=== PATIENT | female | born 1960 | race Caucasian/White ===

== ENCOUNTER → 2023-09-27 | Day surgery (SDC) | payer BC, OTHER ==
[~2023-09-27] VITALS: Ht 154.9 cm; Wt 55.2 kg
[~2023-09-27] MED LIST: AZEL1SPR3; CIPRODEX OTIC SUSP 7.5ML As Ordered ONE; ESCI5SOL3 PO; HYDR12.55 PO; HYDROMORPHONE HCL 0.5 MG/ 0.5 ML SYRINGE IV PRN; LEVO50TA5 PO; LIDOCAINE 1% SDV 5ML VIAL SC PRN; LIDOCAINE 2% 100MG/5ML SDV (FOR ANES.) As Ordered ONE; LR 1,000 ML IV SCH; METOCLOPRAMIDE INJ 10MG/2ML VIAL IV PRN; MIDAZOLAM INJ 2MG/2ML VIAL As Ordered ONE; MONT10TA97 PO; NYST-38 PO; OMEP40CA5 PO; ONDANSETRON 4MG 2ML VIAL As Ordered ONE; ONDANSETRON 4MG 2ML VIAL IV PRN; PRAV20TA2 PO; ePHEDrine SULFATE 25 MG/5 ML(5MG/ML) SYRINGE As Ordered ONE; fentaNYL 100 MCG/2 ML INJECTION As Ordered ONE; fentaNYL 100 MCG/2 ML INJECTION IV PRN; oxyCODONE 5MG TAB PO PRN; propofoL 200 MG/20 ML VIAL As Ordered ONE
[2023-09-27 12:56] VITALS: BP 130/84; TEMP 97.1; O2SAT 96
== END | disposition home or self-care (01) ==
LOC: M SDC 08:39
PROVIDERS: ATTEND Otolaryngology
DX: H69.93 Unspecified Eustachian tube disorder, bilateral (principal); I10 Essential (primary) hypertension; E78.00 Pure hypercholesterolemia, unspecified; E03.8 Other specified hypothyroidism; Z88.0 Allergy status to penicillin; Z79.899 Other long term (current) drug therapy; Z79.890 Hormone replacement therapy
CPT/HCPCS: 69436; J1100; J2250; J2405; J3010

== ENCOUNTER → 2023-11-02 | Outpatient (REF) | payer BC, OTHER ==
[~2023-11-02] MED LIST changes: -CIPRODEX OTIC SUSP 7.5ML As Ordered ONE; -HYDROMORPHONE HCL 0.5 MG/ 0.5 ML SYRINGE IV PRN; -LIDOCAINE 1% SDV 5ML VIAL SC PRN; -LIDOCAINE 2% 100MG/5ML SDV (FOR ANES.) As Ordered ONE; -LR 1,000 ML IV SCH; -METOCLOPRAMIDE INJ 10MG/2ML VIAL IV PRN; -MIDAZOLAM INJ 2MG/2ML VIAL As Ordered ONE; -ONDANSETRON 4MG 2ML VIAL As Ordered ONE; -ONDANSETRON 4MG 2ML VIAL IV PRN; -ePHEDrine SULFATE 25 MG/5 ML(5MG/ML) SYRINGE As Ordered ONE; -fentaNYL 100 MCG/2 ML INJECTION As Ordered ONE; -fentaNYL 100 MCG/2 ML INJECTION IV PRN; -oxyCODONE 5MG TAB PO PRN; -propofoL 200 MG/20 ML VIAL As Ordered ONE
== END ==
LOC: M SFHCWOUN 12:28
PROVIDERS: ATTEND Physician Assistant
DX: M27.2 Inflammatory conditions of jaws (principal)

== ENCOUNTER → 2024-11-19 | Outpatient (CLI) | payer MEDICARE, BC ==
[~2024-11-19] MED LIST changes: +ISOVUE-370 76% 100ML VIAL ONE
== END ==
LOC: M PLAIMG 07:29
PROVIDERS: ATTEND Otolaryngology
DX: Z85.818 Personal history of malignant neoplasm of other sites of lip, oral cavity, and pharynx (principal)
CPT/HCPCS: 70491; Q9967

== ENCOUNTER → 2025-01-30 | Day surgery (SDC) | payer MEDICARE, BC ==
[~2025-01-30] VITALS: Ht 154.9 cm; Wt 49.9 kg
[~2025-01-30] MED LIST changes: +BISO5TAB14 PO; -ISOVUE-370 76% 100ML VIAL ONE; +LIDOCAINE 2% 100MG/5ML SDV (FOR ANES.) As Ordered ONE; +fentaNYL 100 MCG/2 ML INJECTION As Ordered ONE; +propofoL 500 MG/50 ML VIAL As Ordered ONE
[2025-01-30 14:08] VITALS: TEMP 97.5
[2025-01-30 14:26] VITALS: BP 131/83; O2SAT 96
== END | disposition home or self-care (01) ==
LOC: M OPP 12:07
PROVIDERS: ATTEND Internal Medicine Gastroenterology
DX: Z12.11 Encounter for screening for malignant neoplasm of colon (principal); K57.30 Diverticulosis of large intestine without perforation or abscess without bleeding; K64.8 Other hemorrhoids; R13.11 Dysphagia, oral phase; J39.2 Other diseases of pharynx; Z88.0 Allergy status to penicillin; Z79.899 Other long term (current) drug therapy; Z87.891 Personal history of nicotine dependence
CPT/HCPCS: 43235; 45378; J3010

== ENCOUNTER → 2025-09-15 | Outpatient (CLI) | payer MEDICARE, BC ==
[~2025-09-15] MED LIST changes: +FLUC100T3 PO; -LIDOCAINE 2% 100MG/5ML SDV (FOR ANES.) As Ordered ONE; -PRAV20TA2 PO; +PRAV20TA78 PO; -fentaNYL 100 MCG/2 ML INJECTION As Ordered ONE; -propofoL 500 MG/50 ML VIAL As Ordered ONE
[2025-09-15 12:50] LABS: BASO # 0.0 10^3/uL (0.0-0.2); BASO % 0.6 % (0.0-1.0); EOS # 0.1 10^3/uL (0.0-0.5); EOS % 1.8 % (0.0-3.0); LYMPH # 1.7 10^3/uL (1.5-5.0); LYMPH % 32.8 % (24.0-44.0); MONO # 0.5 10^3/uL (0.0-0.8); MONO % 9.9 % (2.0-8.0); NEUTROPHILS # 2.8 10^3/uL (1.5-8.5); NEUTROPHILS % 54.5 % (36.0-66.0); PLATELET COUNT, AUTOMATED 585 10^3/uL (150-450)
[2025-09-15 13:21] LABS: ALT/SGPT 9.0 U/L (7.0-40); AST/SGOT 14.0 U/L (<34); CALCIUM LEVEL 9.1 MG/DL (8.3-10.6); CARBON DIOXIDE LEVEL 29.0 MMOL/L (20-31); CHLORIDE LEVEL 94.0 MMOL/L (98-107); CREATININE FOR GFR 0.78 MG/DL (0.55-1.30); GLOMERULAR FILTRATION RATE 83.7 (>45); MAGNESIUM LEVEL 1.2 MG/DL (1.8-2.4); POTASSIUM SERUM 4.1 MMOL/L (3.5-5.1); SODIUM LEVEL 134.0 MMOL/L (136-145)
== END ==
LOC: M LAB 11:55
PROVIDERS: ATTEND Nurse Practitioner Adult Health
DX: C10.9 Malignant neoplasm of oropharynx, unspecified (principal)

== ENCOUNTER → 2025-10-01 | Outpatient (CLI) | payer MEDICARE ==
[2025-10-01 12:49] LABS: BASO # 0.0 10^3/uL (0.0-0.2); BASO % 0.4 % (0.0-1.0); EOS # 0.1 10^3/uL (0.0-0.5); EOS % 1.7 % (0.0-3.0); LYMPH # 1.7 10^3/uL (1.5-5.0); LYMPH % 22.0 % (24.0-44.0); MONO # 0.6 10^3/uL (0.0-0.8); MONO % 8.4 % (2.0-8.0); NEUTROPHILS # 5.1 10^3/uL (1.5-8.5); NEUTROPHILS % 67.2 % (36.0-66.0); PLATELET COUNT, AUTOMATED 479 10^3/uL (150-450)
[2025-10-01 13:07] LABS: ALT/SGPT 11 U/L (7.0-40); AST/SGOT 18 U/L (<34); CALCIUM LEVEL 9.1 MG/DL (8.3-10.6); CARBON DIOXIDE LEVEL 30 MMOL/L (20-31); CHLORIDE LEVEL 100 MMOL/L (98-107); CREATININE FOR GFR 0.65 MG/DL (0.55-1.30); GLOMERULAR FILTRATION RATE > 90.0 (>45); MAGNESIUM LEVEL 1.2 MG/DL (1.8-2.4); POTASSIUM SERUM 4.0 MMOL/L (3.5-5.1); SODIUM LEVEL 138 MMOL/L (136-145)
== END ==
LOC: M LAB 11:50
PROVIDERS: ATTEND Nurse Practitioner Adult Health
DX: C10.9 Malignant neoplasm of oropharynx, unspecified (principal)